=== PATIENT | male | born 1990 | race Caucasian/White ===

== ENCOUNTER 2025-06-08 20:49 | Emergency (ER) | payer OTHER, SELFPAY ==
[2025-06-08 20:50] VITALS: BP 139/93; PULSE 82; RESP 18; TEMP 36.8; O2SAT 100; BMI 24.7
[2025-06-08 20:55] VITALS: BP 139/93; PULSE 82; RESP 18; TEMP 36.8; O2SAT 100
[2025-06-08 21:55] VITALS: BP 145/100; PULSE 91; RESP 18; TEMP 36.8; O2SAT 100
[2025-06-08] MEDS: Smz/Tmp Ds Tablet 1 TABLET PO (22:32)
[2025-06-08] MEDS: Lidocaine 1% /Epi 1:100 (20ml) 20 ML Vial INFILT (22:32)
[2025-06-08 22:36] VITALS: BP 145/100; PULSE 88; RESP 18; TEMP 36.8; O2SAT 100
--- NOTE | 2025-06-08 22:44 | EDS_ITS ---
HPI History of Present Illness Chief Complaint: Cellulitis Narrative Narrative: Chief complaint and HPI: 35-year-old male with no significant past medical history presents for evaluation of left lower thigh abscess/cellulitis. Patient states he noticed a small cut to his left lower thigh several days ago. States since then it has became more red and swollen. States the abrasion has slightly opened. He denies any fever, chills, shortness of breath, chest pain, nausea, vomiting. Patient states he has a history of a right lower extremity abscess in the past in which it was I&D and treated with antibiotics. He denies any immunocompromise or diabetes. Knee unremarkable without pain. Review of systems: See HPI Medications: As listed on the chart Allergies: As listed on the chart PFSH: Per chart Vital signs: As listed on the chart. Reviewed. Physical exam: Gen: A&O x3, NAD Head: Normocephalic, atraumatic Eyes: No sclera icterus, conjunctiva clear ENT: Moist mucous membranes CV: RRR, no murmurs Resp: Lungs CTA BL, no w/r/c Musc: Full active range of motion of all the extremities including the left lower extremity and knee, left knee without erythema/swelling/crepitus/pain or tenderness, patient has an abrasion to the left lower thigh that has a small area of fluctuance located under it, there is a larger area of induration, erythema, warmth surrounding the area-no lymphatic streaking-no crepitus, DP/PT pulses +2 bilaterally, compartments soft, sensation intact, good capillary refill Psych: Cooperative, appropriate mood and affect PFSH PFSH Medical History no medical history Home Medications ?Medication ?Instructions ?Recorded ?Last Taken ?Type cephalexin 500 mg capsule 500 mg PO Q12 #14 CAPSULES 1 08/08/24 Unknown Rx sulfamethoxazole 800 1 tab PO BID 7 days #14 tabs 06/08/25 Unknown Rx mg-trimethoprim 160 mg tablet (Bactrim DS) Allergy/AdvReac Type Severity Reaction Status Date / Time No Known Allergies Allergy Verified 06/08/25 20:50 Social History Smoking Status: Never smoker EXAM Physical Exam Const Vital Signs: 06/08/25 20:50 06/08/25 20:55 06/08/25 21:55 Temperature 98.3 F 98.3 F 98.3 F Temperature Source Oral Oral Oral Pulse Rate 82 82 91 Respiratory Rate 18 18 18 Blood Pressure 139/93 H 139/93 H 145/100 H Blood Pressure Mean 108 108 115 Pulse Ox 100 100 100 Oxygen Delivery Method Room Air Room Air 06/08/25 22:36 06/08/25 22:49 Temperature 98.3 F Temperature Source Oral Pulse Rate 88 91 Respiratory Rate 18 Blood Pressure 145/100 H 151/99 H Blood Pressure Mean 115 116 Pulse Ox 100 100 Oxygen Delivery Method Room Air Room Air MDM MDM MDM Narrative Medical decision making narrative: 35-year-old male with no significant past medical history presents for evaluation of left lower thigh abscess/cellulitis. Denies systemic symptoms. Not immunocompromised or diabetic. Triage note states that the patient is complaining of left knee swelling, pain, redness. This is incorrect. Patient has no pain, swelling, redness to the left knee. It is all to the distal thigh where he has a small abscess/cellulitis. See physical exam findings. Physical exam not consistent with septic arthritis. I do not think any laboratory workup or imaging is needed at this time. Will I&D abscess and treat with Keflex and Bactrim. First dose given here. Patient tolerated I&D well. Follow-up with primary care physician. Return back to ED symptoms change or worsen. He confi rmed understand the plan. Patient able to discharge home. Incision and Drainage Indication: Abscess Location: Left lower thigh Consent: Risks, benefits, and alternatives discussed with patient and consent obtained Procedure: The area was prepared and draped in the usual sterile manner. The site was anesthetized with 1% lidocaine with epinephrine. A cruciate incision was made in the skin and minimal purulence was expressed. The abscess was explored thoroughly, and sequestered pockets were opened. The abscess pocket was irrigated. Bleeding was minimal. The patient tolerated the procedure well without complications. Packing: None Follow-Up: Standard post-procedure care was explained and return precautions were given Impression: 1. Left lower thigh abscess 2. Left lower thigh cellulitis Discharge Plan Triage Chief Complaint: Cellulitis ED Provider: Oswaldo Taylor Dx/Rx/DC Orders Clinical Impression: Abscess of left thigh, Cellulitis of left thigh Instructions: ED Abscess Incision And Drainage, ED Cellulitis Prescriptions: New cephalexin 500 mg capsule 500 mg PO Q12 Qty: 14 0RF sulfamethoxazole-trimethoprim [Bactrim DS] 800-160 mg tablet 1 tab PO BID 7 Days Qty: 14 0RF Primary Care Provider: Care Physician,No Primary Referrals: Jack Roberts MD [Med Staff - Active Staff, Family Practice] - 3-5 Days Care Physician,No Primary [Primary Care Provider, Medical] Activity Restrictions/Additional Instructions: Follow-up with your primary care physician. If you do not have a primary care physician follow with the one listed above. Monitor for worsening signs of infection. Take all the antibiotics emergency first doses here in the emergency department. Okay to shower in 24 hours. No lakes, [place], hot tubs, oceans, soaking the bathtub until fully healed. Print Language: Japanese Disposition Disposition: Home, Self Care
[2025-06-08 22:49] VITALS: BP 151/99; PULSE 91; O2SAT 100
[2025-06-08 23:11] VITALS: BP 151/99; PULSE 86; RESP 18; TEMP 36.8; O2SAT 100
== END 2025-06-08 23:15 | disposition home or self-care (01) ==
PROVIDERS: Emergency Provider Surgery; Visit Provider Surgery
DX: L02.416 Cutaneous abscess of left lower limb (principal); L03.116 Cellulitis of left lower limb
CPT/HCPCS: 10060; 99283